=== PATIENT | male | born 1990 | race Caucasian/White ===

== ENCOUNTER 2018-12-13 16:59 | Emergency (ER) | payer SELFPAY ==
[~2018-12-13] VITALS: Ht 188 cm; Wt 99.8 kg
[~2018-12-13 16:59] MED LIST: ALBU90OI INH; BENZ100A PO; CEPH500 PO; CETYLOZ PO; CLIN300 PO; Cleocin HCl300 MG PO; HYDACE5 PO; HYDACE5325 PO; HYDGUAL120 PO; HYDR-86 PO; IBUP600 PO; Monodox100 MG PO; Naprosyn500 MG PO; OXYACE5T PO; Prednisone20 MG PO; SILSUL1TC TOP; SPACE CHAMBER1 EACH MC; SULTRIDS PO; TRAM50 PO; Vibramycin100 MG PO; [UNRECOGNIZED DRUG - REMARK]
[2018-12-13] MEDS ORDERED: Keflex500 MG PO (19:25)
[2018-12-13] MEDS ORDERED: Bactrim Ds Tab1 EACH PO (19:25)
== END 2018-12-13 19:36 | disposition home or self-care (01) ==
LOC: ER 16:59
DX: N63.20 Unspecified lump in the left breast, unspecified quadrant (principal); Z88.0 Allergy status to penicillin; F17.210 Nicotine dependence, cigarettes, uncomplicated
CPT/HCPCS: 99283

== ENCOUNTER 2018-12-20 13:30 | Emergency (ER) | payer SELFPAY ==
[~2018-12-20] VITALS: Ht 188 cm; Wt 99.8 kg
[~2018-12-20 13:30] MED LIST changes: +Bactrim Ds Tab1 EACH PO; +Keflex500 MG PO
== END 2018-12-20 15:08 | disposition home or self-care (01) ==
LOC: ER 13:30
DX: N61.1 Abscess of the breast and nipple (principal); F17.210 Nicotine dependence, cigarettes, uncomplicated; Z88.0 Allergy status to penicillin; Z79.2 Long term (current) use of antibiotics
CPT/HCPCS: 10160; 87070; 87075; 87077; 87147; 87186; 87205; 99283-25

== ENCOUNTER 2020-06-29 14:15 | Emergency (ER) | payer OTHER ==
[~2020-06-29] VITALS: Ht 188 cm; Wt 104.3 kg
[2020-06-29 14:51] LABS: BASOPHILS ABSOLUTE AUTO 0.03 K/mm3 (0.00-0.23); BASOPHILS PERCENT AUTO 0 % (0-2); EOSINOPHILS ABSOLUTE AUTO 0.28 K/mm3 (0.00-0.68); EOSINOPHILS PERCENT AUTO 3 % (0-6); Hematocrit 47.5 % (37.0-53.0); IMMATURE GRAN ABSOLUTE AUTO 0.03 K/mm3 (0.00-0.10); IMMATURE GRAN PERCENT AUTO 0 % (0-1); LYMPHOCYTES ABSOLUTE AUTO 4.53 K/mm3 (0.84-5.20); LYMPHOCYTES PERCENT AUTO 40 % (21-46); MONOCYTES ABSOLUTE AUTO 0.61 K/mm3 (0.16-1.47); MONOCYTES PERCENT AUTO 5 % (4-13); Mean Corpuscular HGB 30.3 pg (26.0-34.0); Mean Corpuscular HGB Conc 33.7 g/dL (31.5-36.5); Mean Corpuscular Volume 90 fL (80-100); Mean Platelet Volume 9.1 fL (9.1-12.4); NEUTROPHILS ABSOLUTE AUTO 5.82 K/mm3 (1.96-9.15); NEUTROPHILS PERCENT AUTO 51 % (41-73); Platelet Count 214 K/mm3 (150-400); RDW Coefficient Variation 12.6 % (11.7-14.2); RDW Standard Deviation 41.5 fL (35.1-46.3); Red Blood Cell Count 5.28 M/mm3 (4.30-5.90)
[2020-06-29 15:07] LABS: Troponin I <0.015 ng/mL (0.000-0.040)
[2020-06-29 15:08] LABS: Alanine Aminotransfer (ALT/SGP 62 U/L (12-78); Albumin/Globulin Ratio 1.2 (0.8-1.8); Alk Phos 59 U/L (50-136); Anion Gap 6 mmol/L (6-16); Aspartate Aminotrans (AST/SGOT 20 U/L (12-37); Bilirubin, Total 0.4 mg/dL (0.1-1.0); Blood Urea Nitrogen 19 mg/dL (8-24); Bun/Creatinine Ratio 22.2 (12.0-20.0); CO2, Blood 24 mmol/L (21-32); Calcium, Blood 8.8 mg/dL (8.5-10.1); Chloride, Blood 109 mmol/L (98-108); Creatinine, Blood 0.85 mg/dL (0.60-1.20); Globulin, Blood 3.3 g/dL (2.2-4.0); Glomerular Filtration Rate >60 (60-); Glucose, Blood 105 mg/dL (70-99); Potassium, Blood 3.7 mmol/L (3.5-5.5); Sodium, Blood 139 mmol/L (136-145); Total Protein, Blood 7.3 g/dL (6.4-8.2)
[2020-06-29] MEDS ORDERED: Norco 7.5-3251 EACH PO (17:32)
== END 2020-06-29 17:58 | disposition home or self-care (01) ==
LOC: ER 14:15
PROVIDERS: Physician Assistant
DX: R07.9 Chest pain, unspecified (principal); R06.02 Shortness of breath; F17.210 Nicotine dependence, cigarettes, uncomplicated; Z86.59 Personal history of other mental and behavioral disorders
CPT/HCPCS: 36415; 71046; 80053; 84484; 85025; 93005; 93010; 99285-25